=== PATIENT | female | born 1975 | race Caucasian/White ===

== ENCOUNTER → 2020-09-08 | Outpatient (REF) | payer OTHER | LOC: M WUC 19:53 | PROVIDERS: ATTEND Physician Assistant | DX: N39.0 Urinary tract infection, site not specified (principal) ==

== ENCOUNTER → 2020-09-09 | Outpatient (CLI) | payer OTHER ==
--- NOTE | 2020-09-09 14:32 | REP ---
INDICATION: RIGHT FLANK PAIN, HEMATURIA?. COMPARISON: None. TECHNIQUE: Real-time sonographic evaluation of the kidneys is performed. FINDINGS: Renal cortical echogenicity pattern is normal bilaterally and contours are smooth. There is no evidence of hydronephrosis, cyst, mass, or calculus in either kidney. The right kidney measures 11.5 x 5.6 x 4.8 cm. Left renal dimensions are 12.1 x 5.0 x 5.1 cm. The urinary bladder is unremarkable. Incidental note is made of an IUD in the uterus. There is also a large gallstone in the gallbladder. IMPRESSION: Negative renal ultrasound. <Electronically signed by Felix Johnson > 09/09/20 [id number]
== END ==
LOC: M RAD 13:51
PROVIDERS: ATTEND Physician Assistant
DX: N39.0 Urinary tract infection, site not specified (principal); M54.9 Dorsalgia, unspecified

== ENCOUNTER → 2024-11-05 | Outpatient (CLI) | payer OTHER ==
[2024-11-05 17:30] LABS: BASO # 0.1 10^3/uL (0.0-0.2); BASO % 0.8 % (0.0-1.0); EOS # 0.1 10^3/uL (0.0-0.5); EOS % 1.4 % (0.0-3.0); HEMATOCRIT 40.3 % (36.0-47.0); HEMOGLOBIN 13.1 g/dl (12.0-15.5); LYMPH # 2.2 10^3/uL (1.5-5.0); LYMPH % 26.1 % (24.0-44.0); MEAN CORPUSCULAR HEMOGLOBIN 26.1 pg (27.0-33.0); MEAN CORPUSCULAR HGB CONC 32.5 g/dl (32.0-36.5); MEAN CORPUSCULAR VOLUME 80.4 fl (80.0-96.0); MONO # 0.5 10^3/uL (0.0-0.8); MONO % 5.6 % (2.0-8.0); NEUTROPHILS # 5.6 10^3/uL (1.5-8.5); NEUTROPHILS % 65.9 % (36.0-66.0); PLATELET COUNT, AUTOMATED 349 10^3/uL (150-450); RED BLOOD COUNT 5.01 10^6/uL (4.00-5.40); WHITE BLOOD COUNT 8.6 10^3/uL (4.0-10.0)
[2024-11-05 17:42] LABS: ERYTHROCYTE SEDIMENTATION RATE 19 mm/hr (0-20)
[2024-11-05 17:59] LABS: LIPASE 30 U/L (12-53); MAGNESIUM LEVEL 1.9 MG/DL (1.8-2.4)
[2024-11-05 18:01] LABS: C REACTIVE PROTEIN QUANTITATIV < 0.50 MG/DL (<1.0)
== END ==
LOC: M LAB 16:32
PROVIDERS: ATTEND Registered Nurse
DX: R10.31 Right lower quadrant pain (principal); M79.605 Pain in left leg

== ENCOUNTER → 2024-11-26 | Outpatient (CLI) | payer OTHER | LOC: M RAD 12:35 | PROVIDERS: ATTEND Registered Nurse | DX: R10.31 Right lower quadrant pain (principal); R22.42 Localized swelling, mass and lump, left lower limb; K57.30 Diverticulosis of large intestine without perforation or abscess without bleeding ==